=== PATIENT | male | born 1970 | race Caucasian/White ===

== ENCOUNTER 2023-08-14 14:59 | Inpatient (IN) | payer OTHER ==
[~2023-08-14] VITALS: Ht 162.6 cm; Wt 59.0 kg
[2023-08-14] MEDS ORDERED: AVAPRO300 MG (15:38)
[2023-08-14] MEDS ORDERED: LABETALOL HCL200 MG (15:38)
[2023-08-14] MEDS ORDERED: MYSOLINE250 MG (15:39)
[2023-08-14] MEDS ORDERED: SYNTHROID (15:39)
[2023-08-14 16:59] LABS: HEMATOCRIT 36.8 % (39.0-48.0); HEMOGLOBIN 12.5 g/dL (13-16.00); MEAN CELL VOLUME 84.3 fL (80.0-100.00); MEAN CORPUSCULAR HEMOGLOBIN 28.7 pg (27.00-32.0); PLATELET COUNT 208 K/uL (150-450); RED BLOOD COUNT 4.37 M/uL (4.00-6.00); RED CELL DISTRIBUTION WIDTH 13.8 % (11.5-14.5)
[2023-08-14 17:32] LABS: CALCIUM 9.1 mg/dL (8.5-10.1); POTASSIUM 4.58 mEq/L (3.5-5.1)
[2023-08-14 17:37] LABS: CREATININE SERUM 8.93 mg/dL (0.70-1.30); GFR 6.25
[2023-08-14 17:50] LABS: URINE APPEARANCE Turbid; URINE BILIRRUBIN Negative (NEGATIVE); URINE BLOOD Large; URINE COLOR Yellow; URINE GLUCOSE Negative (NEGATIVE); URINE LEUKOCYTE Large; URINE NITRATE Negative; URINE UROBILINOGEN 0.2 E.U./dl
[2023-08-14 17:51] LABS: URINE RBC 1678.3 uL (0.0-20.8)
[2023-08-14 18:08] LABS: URINE BACTERIA > 9821.5 uL (0.0-1933); URINE EPITHELIAL CELLS 0.3 uL (0.0-38.8); URINE PROTEIN 300 (NEGATIVE); URINE WBC > 5548.3 uL (0.0-23.2)
[2023-08-14 22:12] LABS: MAGNESIUM 2.2 mg/dL (1.8-2.4); PHOSPHOROUS 3.8 mg/dL (2.5-4.9)
[2023-08-15 07:08] LABS: HEMATOCRIT 37.1 % (39.0-48.0); HEMOGLOBIN 12.5 g/dL (13-16.00); MEAN CELL VOLUME 85.3 fL (80.0-100.00); MEAN CORPUSCULAR HEMOGLOBIN 28.8 pg (27.00-32.0); MEAN CORPUSCULAR HGB CONC 33.7 g/dl (32.0-36.0); PLATELET COUNT 240 K/uL (150-450); RED BLOOD COUNT 4.35 M/uL (4.00-6.00); RED CELL DISTRIBUTION WIDTH 13.3 % (11.5-14.5)
[2023-08-15 08:02] LABS: ALBUMIN 2.7 gm/dL (3.4-5.0); BILIRUBIN TOTAL 0.47 mg/dL (0.3-1.2); GFR 11.19; GLOBULINA 3.5 G/DL (2.4-3.5); POTASSIUM 5.07 mEq/L (3.5-5.1); TOTAL PROTEIN 6.2 gm/dL (6.4-8.2)
[2023-08-15 09:29] LABS: CREATININE SERUM 5.39 mg/dL (0.70-1.30)
[2023-08-15 09:54] LABS: ABG PO2 124.4 mmHg (80-100); SaO2 98.9 %
[2023-08-15 09:55] LABS: BASE EXCESS -2.4 mmol/l; BICARBONATE 20.6 mmol/l (23-25); Tco2 21.5 mmol/l; o2 21 %
[2023-08-15 09:56] LABS: allen test SATISFACTORY; puncture site RADIAL RIGHT
[2023-08-16 08:31] LABS: HEMATOCRIT 36.6 % (39.0-48.0); HEMOGLOBIN 12.6 g/dL (13-16.00); MEAN CELL VOLUME 83.5 fL (80.0-100.00); MEAN CORPUSCULAR HEMOGLOBIN 28.9 pg (27.00-32.0); MEAN CORPUSCULAR HGB CONC 34.6 g/dl (32.0-36.0); PLATELET COUNT 268 K/uL (150-450); RED BLOOD COUNT 4.38 M/uL (4.00-6.00); RED CELL DISTRIBUTION WIDTH 13.6 % (11.5-14.5)
[2023-08-16 08:37] LABS: ALBUMIN 2.7 gm/dL (3.4-5.0); BILIRUBIN TOTAL 0.31 mg/dL (0.3-1.2); CALCIUM 8.7 mg/dL (8.5-10.1); CREATININE SERUM 2.31 mg/dL (0.70-1.30); GFR 29.74; GLOBULINA 3.6 G/DL (2.4-3.5); MAGNESIUM 1.8 mg/dL (1.8-2.4); PHOSPHOROUS 3.6 mg/dL (2.5-4.9); POTASSIUM 4.39 mEq/L (3.5-5.1); TOTAL PROTEIN 6.3 gm/dL (6.4-8.2)
[2023-08-16 08:43] LABS: C-REACTIVE PROTEIN 12.5 MG/DL (0.00-0.29); PROSTATIC SPECIFIC ANTIGEN 57.6 NG/ML (0.010-4.00)
[2023-08-17 07:01] LABS: ALBUMIN 2.8 gm/dL (3.4-5.0); CALCIUM 8.5 mg/dL (8.5-10.1); CREATININE SERUM 1.52 mg/dL (0.70-1.30); GFR 48.21; MAGNESIUM 1.7 mg/dL (1.8-2.4); PHOSPHOROUS 2.7 mg/dL (2.5-4.9); POTASSIUM 3.77 mEq/L (3.5-5.1)
[2023-08-17 08:06] LABS: HEMATOCRIT 37.2 % (39.0-48.0); HEMOGLOBIN 13.1 g/dL (13-16.00); MEAN CELL VOLUME 82.7 fL (80.0-100.00); MEAN CORPUSCULAR HGB CONC 35.1 g/dl (32.0-36.0); PLATELET COUNT 289 K/uL (150-450); RED CELL DISTRIBUTION WIDTH 13.5 % (11.5-14.5)
[2023-08-17 08:18] LABS: PH,URINE 6.5; URINE BACTERIA 357.7 uL (0.0-1933); URINE BILIRRUBIN NEGATIVE (NEGATIVE); URINE BLOOD LARGE; URINE EPITHELIAL CELLS 23.1 uL (0.0-38.8); URINE GLUCOSE NEGATIVE (NEGATIVE); URINE LEUKOCYTE SMALL; URINE NITRATE NEGATIVE; URINE UROBILINOGEN 0.2 E.U./dl; URINE WBC 203.7 uL (0.0-23.2)
[2023-08-17 08:33] LABS: URINE PROTEIN 100 (NEGATIVE)
[2023-08-17 08:35] LABS: URINE APPEARANCE CLEAR; URINE COLOR YELLOW
[2023-08-19 07:44] LABS: HEMATOCRIT 34.8 % (39.0-48.0); HEMOGLOBIN 12.2 g/dL (13-16.00); MEAN CELL VOLUME 82.1 fL (80.0-100.00); MEAN CORPUSCULAR HEMOGLOBIN 28.8 pg (27.00-32.0); MEAN CORPUSCULAR HGB CONC 35.1 g/dl (32.0-36.0); PLATELET COUNT 275 K/uL (150-450); RED BLOOD COUNT 4.24 M/uL (4.00-6.00); RED CELL DISTRIBUTION WIDTH 13.4 % (11.5-14.5)
[2023-08-19 08:41] LABS: ALBUMIN 2.7 gm/dL (3.4-5.0); BILIRUBIN TOTAL 0.35 mg/dL (0.3-1.2); CALCIUM 8.8 mg/dL (8.5-10.1); CREATININE SERUM 2.25 mg/dL (0.70-1.30); GFR 30.66; GLOBULINA 3.1 G/DL (2.4-3.5); POTASSIUM 3.68 mEq/L (3.5-5.1); TOTAL PROTEIN 5.8 gm/dL (6.4-8.2)
== END 2023-08-19 11:02 | disposition home or self-care (01) | DRG 690 ==
LOC: ER 15:00 → MEDJ 20:28
PROVIDERS: General Practice; Internal Medicine; Internal Medicine Infectious Disease; Internal Medicine Nephrology; ADMIT Internal Medicine; ATTEND Internal Medicine
PROC: BW21ZZZ Computerized Tomography (CT Scan) of Abdomen and Pelvis (ICD-10-PCS; principal; 2023-08-14)
DX: N39.0 Urinary tract infection, site not specified (principal); N17.9 Acute kidney failure, unspecified; G91.9 Hydrocephalus, unspecified; E87.0 Hyperosmolality and hypernatremia; N32.0 Bladder-neck obstruction; N13.30 Unspecified hydronephrosis; B96.4 Proteus (mirabilis) (morganii) as the cause of diseases classified elsewhere; N41.9 Inflammatory disease of prostate, unspecified; N40.1 Benign prostatic hyperplasia with lower urinary tract symptoms; E03.9 Hypothyroidism, unspecified; I10 Essential (primary) hypertension; E78.5 Hyperlipidemia, unspecified

== ENCOUNTER 2023-08-24 14:30 | Inpatient (IN) | payer OTHER ==
[~2023-08-24] VITALS: Ht 132.1 cm; Wt 59.0 kg
[~2023-08-24 14:30] MED LIST: AVAPRO300 MG; LABETALOL HCL200 MG; MYSOLINE250 MG; SYNTHROID
[2023-08-24 17:26] LABS: HEMATOCRIT 31.9 % (39.0-48.0); MEAN CORPUSCULAR HEMOGLOBIN 28.7 pg (27.00-32.0); MEAN CORPUSCULAR HGB CONC 34.6 g/dl (32.0-36.0); PLATELET COUNT 275 K/uL (150-450); RED BLOOD COUNT 3.84 M/uL (4.00-6.00); RED CELL DISTRIBUTION WIDTH 13.4 % (11.5-14.5)
[2023-08-24 17:29] LABS: PH,URINE 5.5 (5.0-8.0); URINE APPEARANCE Clear; URINE BILIRRUBIN Negative (NEGATIVE); URINE BLOOD Large; URINE COLOR Yellow; URINE GLUCOSE Negative (NEGATIVE); URINE LEUKOCYTE Trace; URINE NITRATE Negative; URINE PROTEIN Negative (NEGATIVE); URINE UROBILINOGEN 0.2 E.U./dl
[2023-08-24 17:34] LABS: URINE EPITHELIAL CELLS 14.2 uL (0.0-38.8); URINE RBC 228.3 uL (0.0-20.8)
[2023-08-24 17:56] LABS: ALBUMIN 3.2 gm/dL (3.4-5.0); BILIRUBIN TOTAL 0.28 mg/dL (0.3-1.2); CALCIUM 9.1 mg/dL (8.5-10.1); CREATININE SERUM 3.62 mg/dL (0.70-1.30); GFR 17.71; GLOBULINA 3.5 G/DL (2.4-3.5); POTASSIUM 4.27 mEq/L (3.5-5.1); TOTAL PROTEIN 6.7 gm/dL (6.4-8.2)
[2023-08-24 21:18] LABS: INR 1.12; PARTIAL THROMBOPLASTIN TIME 29.6 SECONDS (22.0-34.0); PROTHROMBIN TIME 11.7 SECONDS (9.0-11.5)
[2023-08-24 21:20] LABS: MAGNESIUM 1.7 mg/dL (1.8-2.4); PHOSPHOROUS 4.1 mg/dL (2.5-4.9)
[2023-08-25 07:02] LABS: ALBUMIN 3.3 gm/dL (3.4-5.0); BILIRUBIN TOTAL 0.37 mg/dL (0.3-1.2); CALCIUM 9.1 mg/dL (8.5-10.1); CREATININE SERUM 2.39 mg/dL (0.70-1.30); GFR 28.6; GLOBULINA 3.5 G/DL (2.4-3.5); POTASSIUM 4.44 mEq/L (3.5-5.1); TOTAL PROTEIN 6.8 gm/dL (6.4-8.2)
== END 2023-08-25 14:36 | disposition home or self-care (01) | DRG 684 ==
LOC: ER 14:31 → MEDI 21:08
PROVIDERS: General Practice; ADMIT Internal Medicine; ATTEND Internal Medicine
DX: N17.9 Acute kidney failure, unspecified (principal); R33.9 Retention of urine, unspecified; Z20.822 Contact with and (suspected) exposure to COVID-19; N32.0 Bladder-neck obstruction; N18.9 Chronic kidney disease, unspecified; E03.9 Hypothyroidism, unspecified; E78.5 Hyperlipidemia, unspecified; I12.9 Hypertensive chronic kidney disease with stage 1 through stage 4 chronic kidney disease, or unspecified chronic kidney disease; R56.9 Unspecified convulsions

== ENCOUNTER 2024-09-22 10:16 | Inpatient (IN) | payer OTHER ==
[~2024-09-22] VITALS: Ht 149.9 cm; Wt 129.7 kg
--- NOTE | 2024-09-22 10:33 | NUR ---
SE RECIBE PTE ALERTA Y ACTIVO EN COMPANIA DE FAMILIAR Y PARAMEDICOS QUIENES REFIEREN 3 VOMITOS EN PTE DESDE KATIE. SE LACIE SV Y SE UBICA EN OBSERVACION
[2024-09-22] MEDS ORDERED: CHLORPROMAZINE HCL 25 MG/ML AMPUL IM STA (10:44)
[2024-09-22] MEDS ORDERED: FAMOtidine 10 MG/ML (4ML VIAL) IV STA (10:45)
[2024-09-22] MEDS ORDERED: DIPHENHYDRAMINE HCL 50 MG/ML VIAL 1ML IM STA (10:45)
[2024-09-22] MEDS ORDERED: ONDANSETRON HCL 2 MG/ML VIAL IV STA (10:46)
[2024-09-22] MEDS ORDERED: 0.9 % SODIUM CHLORIDE 1,000 ML IV STA (10:47)
--- NOTE | 2024-09-22 11:13 | NUR ---
SE ORIENTA A PACIENTE SOBRE TX MEDICO, REFIERE ENTENDER. SE COLECTAN MUESTRAS DE LABORATORIO BAJO MEDIDAS ASEPTICAS. SE ADMINISTRAN MEDICAMENTOS MANDI ORDEN MEDICA. SE COORDINA CT. PENDIENTE RE-EVALUACION MEDICA.
[2024-09-22 11:16] LABS: HEMATOCRIT 30.7 % (39.0-48.0); HEMOGLOBIN 9.8 g/dL (13-16.00); MEAN CELL VOLUME 74.1 fL (80.0-100.00); MEAN CORPUSCULAR HEMOGLOBIN 23.6 pg (27.00-32.0); MEAN CORPUSCULAR HGB CONC 31.8 g/dl (32.0-36.0); PLATELET COUNT 340 K/uL (150-450); RED BLOOD COUNT 4.15 M/uL (4.00-6.00); RED CELL DISTRIBUTION WIDTH 16.1 % (11.5-14.5)
[2024-09-22 11:36] LABS: ALBUMIN 3.2 gm/dL (3.4-5.0); ALKALINE PHOSPHATASE 65 U/L (50-136); ALT/SGPT 23 U/L (12-78); AMYLASE 36 U/L (25-115); ANION GAP 14 (10.0-20.0); AST/SGOT 13 U/L (15-37); BILIRUBIN TOTAL 0.23 mg/dL (0.3-1.2); BILIRUBIN,CONJUGATED < 0.10 mg/dL (0.0-0.2); BILIRUBIN,UNCONJUGATED 0.13 mg/dL (0.0-0.6); BLOOD UREA NITROGEN 63 mg/dL (7-18); BUN CREA RATIO 48 (7.0-25.0); CARBON DIOXIDE 19 mEq/L (21-32); CHLORIDE 111 mmol/L (98-107); CREATININE SERUM 1.32 mg/dL (0.70-1.30); GFR 56.52; GLUCOSE FASTING 172 mg/dL (65-100); OSMOLALITY SERUM 301 MOSM/KG (275-295); POTASSIUM 3.84 mEq/L (3.5-5.1); SODIUM 140 mmol/L (136-145); TOTAL PROTEIN 6.6 gm/dL (6.4-8.2)
[2024-09-22] MEDS ORDERED: MEPERIDINE HCL/PF 50 MG/ML VIAL IM STA (15:54)
[2024-09-22 19:53] LABS: PH,URINE 5.5 (5.0-8.0); URINE APPEARANCE Clear; URINE BILIRRUBIN Negative (NEGATIVE); URINE BLOOD Negative; URINE COLOR Yellow; URINE GLUCOSE Negative (NEGATIVE); URINE KETONE Trace (NEGATIVE); URINE LEUKOCYTE Negative; URINE NITRATE Negative; URINE PROTEIN Trace (NEGATIVE); URINE UROBILINOGEN 0.2 E.U./dl
[2024-09-22 19:57] LABS: URINE CAST 4.86 uL (0.0-1.40); URINE EPITHELIAL CELLS 10.9 uL (0.0-38.8); URINE RBC 3.3 uL (0.0-20.8)
[2024-09-22] MEDS ORDERED: CEFTRIAXONE SODIUM 2,000 MG in 0.9 % SODIUM CHLORIDE 100 ML IV SCH (20:33)
[2024-09-22] MEDS ORDERED: METRONIDAZOLE/SODIUM CHLORIDE 100 ML IV SCH (20:34)
[2024-09-22] MEDS ORDERED: ONDANSETRON HCL 4 MG in 0.9 % SODIUM CHLORIDE 50 ML IV PRN (20:45)
[2024-09-22] MEDS ORDERED: PANTOPRAZOLE SODIUM 40 MG/VIAL VIAL IV ONE (20:45)
[2024-09-22] MEDS ORDERED: 0.9 % SODIUM CHLORIDE 1,000 ML IV SCH (20:45)
[2024-09-22] MEDS ORDERED: PANTOPRAZOLE SODIUM 80 MG in 0.9 % SODIUM CHLORIDE 100 ML IV SCH (20:45)
[2024-09-23 01:35] LABS: INR 1.1; PARTIAL THROMBOPLASTIN TIME 21.2 SECONDS (22.0-34.0); PROTHROMBIN TIME 11.9 SECONDS (9.0-11.5)
[2024-09-23 04:36] VITALS: BP 106/64; O2SAT 97
[2024-09-23 06:00] VITALS: O2SAT 97
[2024-09-23] MEDS ORDERED: LEVOTHYROXINE SODIUM 50 MCG TABLET PO SCH (06:00)
[2024-09-23 08:59] VITALS: BP 105/64; O2SAT 97
[2024-09-23] MEDS ORDERED: PRIMIDONE 250 MG TABLET PO SCH (09:00)
[2024-09-23] MEDS ORDERED: IRBESARTAN 300 MG TABLET PO SCH (09:00)
[2024-09-23 17:40] VITALS: BP 123/76; O2SAT 98
[2024-09-24 01:12] VITALS: BP 105/61; O2SAT 96
[2024-09-24 08:12] VITALS: BP 128/79; O2SAT 98
[2024-09-24 11:20] LABS: MEAN CELL VOLUME 74.5 fL (80.0-100.00); MEAN CORPUSCULAR HGB CONC 33.5 g/dl (32.0-36.0); PLATELET COUNT 194 K/uL (150-450); RED BLOOD COUNT 2.69 M/uL (4.00-6.00); RED CELL DISTRIBUTION WIDTH 16.4 % (11.5-14.5)
[2024-09-24 11:26] LABS: HEMATOCRIT 20.1 % (39.0-48.0); HEMOGLOBIN 6.7 g/dL (13-16.00); MEAN CORPUSCULAR HEMOGLOBIN 24.9 pg (27.00-32.0)
[2024-09-24 17:40] VITALS: BP 168/84
[2024-09-25 01:55] VITALS: BP 123/87; O2SAT 98
[2024-09-25 06:35] LABS: ALBUMIN 2.6 gm/dL (3.4-5.0); BILIRUBIN TOTAL 0.33 mg/dL (0.3-1.2); CALCIUM 7.9 mg/dL (8.5-10.1); CREATININE SERUM 0.79 mg/dL (0.70-1.30); GFR 102.21; GLOBULINA 2.4 G/DL (2.4-3.5); POTASSIUM 3.34 mEq/L (3.5-5.1)
[2024-09-25 06:56] LABS: HEMATOCRIT 28.2 % (39.0-48.0); MEAN CELL VOLUME 79.6 fL (80.0-100.00); MEAN CORPUSCULAR HGB CONC 33.4 g/dl (32.0-36.0); PLATELET COUNT 171 K/uL (150-450); RED BLOOD COUNT 3.54 M/uL (4.00-6.00); RED CELL DISTRIBUTION WIDTH 17.9 % (11.5-14.5)
[2024-09-25 07:03] LABS: HEMOGLOBIN 9.4 g/dL (13-16.00); MEAN CORPUSCULAR HEMOGLOBIN 26.5 pg (27.00-32.0)
[2024-09-25 08:50] VITALS: BP 160/82; O2SAT 96
[2024-09-25 16:58] LABS: ob POSITIVE (NEGATIVE)
[2024-09-25] MEDS ORDERED: POTASSIUM CHLORIDE 20MEQ/100ML H2O PB IV ONE (17:00)
[2024-09-25 19:06] VITALS: BP 162/82
[2024-09-26 02:41] VITALS: BP 151/87; O2SAT 97
[2024-09-26 06:07] LABS: HEMATOCRIT 30.1 % (39.0-48.0); HEMOGLOBIN 10.2 g/dL (13-16.00); MEAN CELL VOLUME 78.6 fL (80.0-100.00); MEAN CORPUSCULAR HEMOGLOBIN 26.8 pg (27.00-32.0); PLATELET COUNT 199 K/uL (150-450); RED BLOOD COUNT 3.82 M/uL (4.00-6.00); RED CELL DISTRIBUTION WIDTH 17.7 % (11.5-14.5)
[2024-09-26 06:38] LABS: CALCIUM 8.3 mg/dL (8.5-10.1); CREATININE SERUM 0.85 mg/dL (0.70-1.30); GFR 93.93; POTASSIUM 3.38 mEq/L (3.5-5.1)
[2024-09-26 08:58] VITALS: BP 159/87; O2SAT 100
[2024-09-26] MEDS ORDERED: MIDAZOLAM HCL 2 MG/2 ML VIAL IV ONE (11:45)
[2024-09-26] MEDS ORDERED: fentaNYL CITRATE 50 MCG/ML AMPUL IV PUSH ONE (11:45)
[2024-09-26] MEDS ORDERED: POTASSIUM CHLORIDE IN WATER 100 ML IV SCH (12:00)
[2024-09-26] MEDS ORDERED: DIPHENHYDRAMINE HCL 50 MG/ML VIAL 1ML IV NR (12:00)
[2024-09-26] MEDS ORDERED: PANTOPRAZOLE SODIUM 40 MG TABLET.DR PO SCH (17:00)
[2024-09-26] MEDS ORDERED: SUCRALFATE 1 G TABLET PO SCH (17:00)
[2024-09-26 18:14] VITALS: BP 113/70; O2SAT 97
[2024-09-27 02:45] VITALS: BP 160/85; O2SAT 96
[2024-09-27 10:25] VITALS: BP 169/86; O2SAT 96
== END 2024-09-27 12:14 | disposition home or self-care (01) | DRG 872 ==
LOC: ER 10:16 → MEDJ 21:03
PROVIDERS: General Practice; Internal Medicine Nephrology; ADMIT Internal Medicine; ATTEND Internal Medicine
PROC: BW21ZZZ Computerized Tomography (CT Scan) of Abdomen and Pelvis (ICD-10-PCS; principal; 2024-09-22)
PROC: BW28ZZZ Computerized Tomography (CT Scan) of Head (ICD-10-PCS; 2024-09-22)
PROC: 4A12X4Z Monitoring of Cardiac Electrical Activity, External Approach (ICD-10-PCS; 2024-09-23)
PROC: 02HV33Z Insertion of Infusion Device into Superior Vena Cava, Percutaneous Approach (ICD-10-PCS; 2024-09-24)
PROC: 30233N1 Transfusion of Nonautologous Red Blood Cells into Peripheral Vein, Percutaneous Approach (ICD-10-PCS; 2024-09-24)
PROC: 30233L1 Transfusion of Nonautologous Fresh Plasma into Peripheral Vein, Percutaneous Approach (ICD-10-PCS; 2024-09-24)
PROC: 0DJ08ZZ Inspection of Upper Intestinal Tract, Via Natural or Artificial Opening Endoscopic (ICD-10-PCS; 2024-09-26)
DX: A41.9 Sepsis, unspecified organism (principal); K92.2 Gastrointestinal hemorrhage, unspecified; N17.8 Other acute kidney failure; K92.0 Hematemesis; R06.6 Hiccough; R65.10 Systemic inflammatory response syndrome (SIRS) of non-infectious origin without acute organ dysfunction; I10 Essential (primary) hypertension; E03.9 Hypothyroidism, unspecified; E78.49 Other hyperlipidemia